=== PATIENT | male | born 1990 | race Caucasian/White ===

== ENCOUNTER 2018-03-21 15:49 | Emergency (ER) | payer SELFPAY ==
[~2018-03-21] VITALS: Ht 170.2 cm; Wt 108.9 kg
[2018-03-21 15:51] VITALS: BP 149/83
[2018-03-21 18:33] VITALS: BP 113/62
== END 2018-03-21 18:33 | disposition home or self-care (01) ==
LOC: EDBD 15:49 → MED 15:49
DX: F10.129 Alcohol abuse with intoxication, unspecified (principal); Y90.9 Presence of alcohol in blood, level not specified
CPT/HCPCS: 99283